=== PATIENT | female | born 1960 | race Caucasian/White ===

== ENCOUNTER 2021-10-22 13:21 | Day surgery (SDC) | payer OTHER ==
[~2021-10-22] VITALS: Ht 170.2 cm; Wt 62.0 kg
[2021-10-22] MEDS ORDERED: ESCI10 (14:01)
[2021-10-22] MEDS ORDERED: Clonazepam0.125 MG (14:02)
== END 2021-10-22 15:55 | disposition home or self-care (01) ==
LOC: ORSCSDS 13:21
PROVIDERS: Surgery
PROC: 0DBM8ZX Excision of Descending Colon, Via Natural or Artificial Opening Endoscopic, Diagnostic (ICD-10-PCS; principal; 2021-10-22 14:45)
DX: Z12.11 Encounter for screening for malignant neoplasm of colon (principal); D12.4 Benign neoplasm of descending colon; Z86.010 Personal history of colon polyps; F41.8 Other specified anxiety disorders; Z85.820 Personal history of malignant melanoma of skin; Z79.899 Other long term (current) drug therapy; F17.210 Nicotine dependence, cigarettes, uncomplicated
CPT/HCPCS: 88305; J0330; J0461; J2405; J2704; J7120

== ENCOUNTER → 2024-04-29 | Outpatient (CLI) | payer OTHER ==
[~2024-04-29] MED LIST: CEFD300 PO; CLIN300 PO; Clonazepam0.125 MG; ESCI10
== END ==
LOC: LAB SHORT 12:00 → LAB 12:00
DX: N39.0 Urinary tract infection, site not specified (principal)
CPT/HCPCS: 87077; 87086; 87186

== ENCOUNTER → 2024-05-23 | Outpatient (CLI) | payer OTHER ==
[2024-05-23 12:12] LABS: Source, Urine Clean Catch
[2024-05-23 12:40] LABS: White Blood Cells, Urine 25-50 /hpf (0-5)
[2024-05-23 12:41] LABS: Bacteria Mod /hpf; Mucus Light (0-Heavy); Red Blood Cells, Urine 25-50 /hpf (0-2); Squamous Epithelial Cells Few /hpf (Few)
== END ==
LOC: LAB 12:10 → LAB SHORT 12:10
PROVIDERS: Internal Medicine
DX: N39.0 Urinary tract infection, site not specified (principal)
CPT/HCPCS: 81015; 87086